=== PATIENT | female | born 1995 | race Hispanic/Latino ===

== ENCOUNTER 2021-03-22 12:44 | Emergency (ER) | payer OTHER ==
[~2021-03-22] VITALS: Ht 162.6 cm; Wt 87.5 kg
[2021-03-22] MEDS ORDERED: HYDROCODONE/APAP 5MG-325MG TAB PO ONE (13:00)
[2021-03-22] MEDS ORDERED: ULTRAM 50MG50 MG PO (14:16)
[2021-03-22] MEDS ORDERED: IBUPROFEN800 MG PO (14:17)
[2021-03-22] MEDS ORDERED: ULTRAM50 MG PO ×2 (14:20→14:25)
== END 2021-03-22 14:43 | disposition home or self-care (01) ==
LOC: ER 13:00
DX: M25.521 Pain in right elbow (principal); W01.10XA Fall on same level from slipping, tripping and stumbling with subsequent striking against unspecified object, initial encounter
CPT/HCPCS: 99284